=== PATIENT | male | born 1985 | race Caucasian/White ===

== ENCOUNTER 2019-12-26 09:35 | Emergency (ER) | payer BC ==
[~2019-12-26] VITALS: Ht 182.9 cm; Wt 98.2 kg
[2019-12-26 09:35] VITALS: BP 140/86
[2019-12-26] MEDS ORDERED: CLIN300C8 PO (10:19)
[2019-12-26] MEDS ORDERED: CIPR1VIA2 EACH EAR (10:19)
--- NOTE | 2019-12-26 10:19 | PHYS DOC ---
Past History Past Medical History: Anxiety Past Surgical History: No Surgical History Alcohol Use: Rarely General Adult EDM: Chief Complaint: DENTAL PROBLEM HPI: HPI: 34 yo M PMH anxiety presents to the ed with c/o right upper molar pain, unable to sleep for the last two nights, worsened with hot/cold food. Some relief with motrin. Pt states he's delaying going to the dentist. Hives from amoxicillin when a child. Also reports he went to his pmd two days ago and is taking an oral steroid for right ear pain/fluid behind his eardrum. Review of Systems: Review of Systems: Constitutional: Denies fever or chills Eyes: Denies change in visual acuity HENT: Denies nasal congestion or sore throat Respiratory: Denies cough or shortness of breath Cardiovascular: Denies chest pain or edema GI: Denies abdominal pain, nausea, vomiting, or diarrhea Musculoskeletal: Denies back pain or joint pain Integument: Denies rash Neurologic: Denies headache, focal weakness or sensory changes, neck stiffness Lymphatic: Denies swollen glands Psychiatric: Denies depression or anxiety Heart Score: Risk Factors: Risk Factors: DM, Current or recent (<one month) smoker, HTN, HLP, family history of CAD, obesity. Risk Scores: Score 0 - 3: 2.5% MACE over next 6 weeks - Discharge Home Score 4 - 6: 20.3% MACE over next 6 weeks - Admit for Clinical Observation Score 7 - 10: 72.7% MACE over next 6 weeks - Early Invasive Strategies Allergies: Allergies: Allergies Coded Allergies Type Severity Reaction Last Updated Verified amoxicillin Allergy Unknown 12/26/19 Yes Physical Exam: PE: Constitutional: Well developed, well nourished, no acute distress, non-toxic appearance. [] HENT: Normocephalic, atraumatic, bilateral external ears normal, both ear canals slightly erythematous, normal TMs w/no effusion/erythema, oropharynx moist, no oral exudates, decay over multiple teeth - pain over upper back right molar #1, no pulp visualized Eyes: EOMI, conjunctiva normal, Neck: Normal range of motion, supple, Skin: Warm, dry, no erythema, no rash. [] Extremities: ROM intact, no edema. [] Neurologic: Alert and oriented X 3, normal motor function, normal sensory function, no focal deficits noted. [] Psychologic: Affect normal, judgement normal, mood normal. [] Current Patient Data: Vital Signs: Vital Signs Date Time Temp Pulse Resp B/P (MAP) Pulse Ox O2 Delivery O2 Flow Rate FiO2 12/26/19 09:35 98.1 130 18 140/86 (104) 98 Room Air EKG: EKG: [] Radiology/Procedures: Radiology/Procedures: [] Course & Med Decision Making: Course & Med Decision Making Pertinent Labs and Imaging studies reviewed. (See chart for details) Concern for acute molar pulpitis with dental caries, cannot appreciate enlarged gingiva. Also with otitis externa (cannot exclude viral cause). Will dc home with abx and ear drops, urgent referral to dentist. Strict return precautions for face/neck swelling, speech changes, sore throat or difficulty breathing. Encouraged urgent outpatient follow-up with PMD and dental clinic. Life- threatening processes were considered but are low suspicion at this time, given history and physical exam. Pt was educated on all prescription medications and adverse effects. All patient's questions were answered and pt was stable at time of discharge. Differential includes diallo's angina, peritonsillar abscess, retropharyngeal abscess, epiglottitis, bacterial tracheitis, uvulitis, sepsis, mastoiditis, traumatic injury, malignant OE, OM, vertigo I spoken with the patient and her caregivers. I explained the patient's condition, diagnoses and treatment plan based on the information available to me at this time. I have answered the patient and her caregiver's questions and addressed any concerns. The patient and her caregivers have a good understanding of patient's diagnosis, condition and treatment plan as can be expected at this point. Vital signs have been stable. Patient's condition is stable and appropriate for discharge from the emergency department. Patient will pursue further outpatient evaluation with primary care physician or other designated or consulting physician as outlined in the discharge instructions. The patient and/or caregivers are agreeable to this plan of care and follow-up instructions have been explained in detail. The patient and/or caregivers have received these instructions in written form and have expressed an understanding of the discharge instructions. The patient and/or caregivers are aware that any significant change of condition or worsening of symptoms should prompt immediate return to this or the closest emergency department or call to 911. Violet Disclaimer: Violet Disclaimer: This electronic medical record was generated, in whole or in part, using a voice recognition dictation system. Departure Departure: Impression: Primary Impression: Dental caries Additional Impressions: Acute pulpitis Otitis externa Disposition: HOME/RESIDENCE PRIOR TO ADM Condition: STABLE Referrals: PCP,NO (PCP) Patient Instructions: Dental Caries, Otitis Externa Scripts Ciprofloxacin HCl/Fluocinolone (Otovel 0.3%-0.025% Ear Drops) 1 Each Vial 1 DROP EACH EAR BID for otitis externa for 7 Days, #14 VIAL 0 Refills Prov: KATHERINE BARROW DO 12/26/19 Clindamycin Hcl (CLINDAMYCIN HCL) 300 Mg Capsule 1 CAP PO TID for dental pain for 10 Days, #30 CAP Prov: KATHERINE BARROW DO 12/26/19 Justification of Admission: Justification of Admission: Justification of Admission Dx: N/A KATHERINE BARROW DO Dec 26, 2019 10:19
== END 2019-12-26 10:25 | disposition home or self-care (01) ==
LOC: ER 09:35
DX: K02.9 Dental caries, unspecified (principal); H60.93 Unspecified otitis externa, bilateral; K04.01 Reversible pulpitis; F41.9 Anxiety disorder, unspecified
CPT/HCPCS: 99283